=== PATIENT | female | born 1990 | race Two or more races ===

== ENCOUNTER 2022-06-03 10:00 | Day surgery (SDC) | payer OTHER ==
[~2022-06-03] VITALS: Ht 157.5 cm; Wt 100.7 kg
--- NOTE | 2022-06-03 05:57 | NUR ---
SE RECIBE PTE ALERTA ORIENTADA X3.PTE REFIERE TENER DOLOR PELVICO ERMELINDA DESDE HACE VARIAS HORAS.PTE REFIERE TENER 13 SEMANAS DE [place].PTE DE DR.ALEXADER JOSEPH.SE MELO S/V Y SE UBICA.
--- NOTE | 2022-06-03 08:12 | NUR ---
SE RECIBE PTE FEMENINA DE 32YRS ALERTA CONCIENTE Y TRANQUILA. PTE ADMICION DE L OPAL PARA PRANAV DE OPERACIONES LA CUAL SE ALISON MUESTRA DE COVID-19POR RN Y SE CANALIZA PARA IVF'S . SE ORIENTA A PTE SOBRE EL PROCEDIMINETO Y SE PREPARA PARA PRANAV DE OPERACIONES.SE MANTIENE EN ESPERA DE LA BUSQUEDA DE LA PACIENTE PARA LLEVARALA A PRANAV DE OPERACIONES.
--- NOTE | 2022-06-03 09:25 | NUR ---
SE SUBE PTE A PRANAV DE OPERACIONES .
== END 2022-06-03 18:50 | disposition home or self-care (01) ==
LOC: CIR.AMB 10:00 → O/R 18:50
PROVIDERS: ATTEND General Practice
DX: O72.2 Delayed and secondary postpartum hemorrhage (principal); O36.4XX0 Maternal care for intrauterine death, not applicable or unspecified; Z3A.13 13 weeks gestation of pregnancy; R10.2 Pelvic and perineal pain

== ENCOUNTER 2023-06-17 15:21 | Outpatient (CLI) | payer OTHER ==
[~2023-06-17 15:21] MED LIST: PRENA1 TRUE CO1 EACH; PROMETRIUM200 MG PO
== END 2023-06-17 15:25 | disposition home or self-care (01) ==
LOC: PRENATAL 15:21
PROVIDERS: ATTEND Obstetrics & Gynecology Maternal & Fetal Medicine
DX: O36.80X0 Pregnancy with inconclusive fetal viability, not applicable or unspecified (principal); Z36.82 Encounter for antenatal screening for nuchal translucency; Z36.9 Encounter for antenatal screening, unspecified; O99.891 Other specified diseases and conditions complicating pregnancy; Z3A.11 11 weeks gestation of pregnancy

== ENCOUNTER 2023-08-20 08:09 | Outpatient (CLI) | payer OTHER | END 2023-08-20 08:11 | disposition home or self-care (01) | LOC: PRENATAL 08:09 | PROVIDERS: ATTEND Obstetrics & Gynecology Maternal & Fetal Medicine | DX: O35.3XX0 Maternal care for (suspected) damage to fetus from viral disease in mother, not applicable or unspecified (principal); O44.00 Complete placenta previa NOS or without hemorrhage, unspecified trimester; O99.891 Other specified diseases and conditions complicating pregnancy; O36.4XX0 Maternal care for intrauterine death, not applicable or unspecified; Z3A.20 20 weeks gestation of pregnancy ==

== ENCOUNTER 2023-08-23 10:26 | Inpatient (IN) | payer OTHER ==
[~2023-08-23] VITALS: Ht 157.5 cm; Wt 87.5 kg
[2023-08-23] MEDS ORDERED: MISOPROSTOL 100 MCG TABLET ONE ×2 (10:52→12:39)
[2023-08-23 11:35] LABS: HEMATOCRIT 37.9 % (36.0-45.00); HEMOGLOBIN 13.2 g/dL (12.0-15.00); MEAN CELL VOLUME 91.6 fL (80.00-100.00); MEAN CORPUSCULAR HEMOGLOBIN 31.8 pg (27.00-32.0); MEAN CORPUSCULAR HGB CONC 34.8 g/dl (32.0-36.0); PLATELET COUNT 315 K/uL (150-450); RED BLOOD COUNT 4.14 M/uL (4.00-6.00); RED CELL DISTRIBUTION WIDTH 13.6 % (11.5-14.5)
[2023-08-23 11:56] LABS: URINE APPEARANCE Clear; URINE BILIRRUBIN Negative (NEGATIVE); URINE BLOOD Negative; URINE COLOR Yellow; URINE GLUCOSE Negative (NEGATIVE); URINE LEUKOCYTE Negative; URINE NITRATE Negative; URINE PROTEIN Trace (NEGATIVE)
[2023-08-23 11:58] LABS: URINE BACTERIA 2441.6 uL (0.0-1933); URINE EPITHELIAL CELLS 18.8 uL (0.0-38.8); URINE RBC 21.2 uL (0.0-20.8); URINE WBC 21.4 uL (0.0-23.2)
[2023-08-23] MEDS ORDERED: MISOPROSTOL 100 MCG TABLET PO ONE ×2 (12:00→12:45)
[2023-08-23 12:03] LABS: INR < 0.93; PARTIAL THROMBOPLASTIN TIME 27.3 SECONDS (22.0-34.0); PROTHROMBIN TIME 9.6 SECONDS (9.0-11.5)
[2023-08-23] MEDS ORDERED: MISOPROSTOL 100 MCG TABLET PO SCH (13:00)
[2023-08-23] MEDS ORDERED: MISOPROSTOL 100 MCG TABLET VAG ONE ×2 (13:00→17:15)
[2023-08-23] MEDS ORDERED: PEPCID AC20 MG PO (13:36)
[2023-08-23] MEDS ORDERED: ZOFRAN8 MG PO (13:37)
[2023-08-23] MEDS ORDERED: MORPHINE SULFATE 4 MG/ML CARTRIDGE IV PRN (21:15)
[2023-08-24] MEDS ORDERED: CHLORHEXIDINE GLUCONATE 120 ML BOTTLE TOP ONE (08:14)
[2023-08-24] MEDS ORDERED: OXYTOCIN 20 UNITS/1000ML RL PIGGYBAG IV ONE (08:15)
[2023-08-24] MEDS ORDERED: OXYTOCIN 10 UNITS/ML VIAL ONE (09:29)
[2023-08-24] MEDS ORDERED: POVIDONE-IODINE 118 ML BOTT TOP ONE ×2 (10:04→10:45)
[2023-08-24] MEDS ORDERED: OxyCODONE HCL/APAP UD (PERCOCET) PO PRN (16:15)
== END 2023-08-25 12:40 | disposition home or self-care (01) | DRG 805 ==
LOC: LDR 10:26 → O/R 10:26 → OB/GYN 08-24 11:02
PROVIDERS: ADMIT Obstetrics & Gynecology; ATTEND Obstetrics & Gynecology
PROC: 10E0XZZ Delivery of Products of Conception, External Approach (ICD-10-PCS; principal; 2023-08-23)
PROC: 10D17Z9 Manual Extraction of Products of Conception, Retained, Via Natural or Artificial Opening (ICD-10-PCS; 2023-08-23)
PROC: 4A1HXCZ Monitoring of Products of Conception, Cardiac Rate, External Approach (ICD-10-PCS; 2023-08-23)
PROC: 3E033VJ Introduction of Other Hormone into Peripheral Vein, Percutaneous Approach (ICD-10-PCS; 2023-08-23)
PROC: 3E0P7VZ Introduction of Hormone into Female Reproductive, Via Natural or Artificial Opening (ICD-10-PCS; 2023-08-23)
PROC: 3E0DXGC Introduction of Other Therapeutic Substance into Mouth and Pharynx, External Approach (ICD-10-PCS; 2023-08-23)
DX: O32.0XX0 Maternal care for unstable lie, not applicable or unspecified (principal); O41.1220 Chorioamnionitis, second trimester, not applicable or unspecified; Z37.1 Single stillbirth; O36.4XX0 Maternal care for intrauterine death, not applicable or unspecified; O73.0 Retained placenta without hemorrhage; Z20.822 Contact with and (suspected) exposure to COVID-19; Z3A.21 21 weeks gestation of pregnancy